=== PATIENT | female | born 1945 | race Caucasian/White ===

== ENCOUNTER 2018-08-20 02:50 | Outpatient (CLI) | payer MEDICARE ==
[2018-08-20 13:25] LABS: #Basophils 0.1 thou/uL (0.0-0.2); #Eosinphils 0.1 thou/uL (0.0-0.7); #Lymphocytes 2.3 thou/uL (1.20-3.40); #Monocytes 0.5 thou/uL (0.11-0.59); #Neutrophils 2.7 thou/uL (1.40-6.50); %Basophils 1.3 % (0.0-1.0); %Eosinophils 1.1 % (0.0-10.0); %Lymphocytes 40.9 % (21.0-51.0); %Monocytes 9.5 % (0.0-10.0); %Neutrophils 47.2 % (42.0-75.0); Hemoglobin 13.8 g/dL (12.0-16.0); Mean Corpuscular HGB CONC 32.1 g/dL (32.0-36.0); Mean Corpuscular Hemoglobin 31.5 pg (27.0-31.0); Mean Corpuscular Volume 98.2 fL (78.0-98.0); Mean Platelet Volume 7.8 fL (7.4-10.4); Platelet Count 286 thou/uL (130-400); RBC Distribution Width 12.2 % (11.5-14.5); Red Blood Cell (RBC) Count 4.37 mill/uL (4.20-5.40); White Blood Cell (WBC) Count 5.6 thou/uL (4.8-10.8)
[2018-08-20 13:30] LABS: Prothrombin Time 12.7 SEC (12.0-14.7)
[2018-08-20 13:51] LABS: Anion Gap 11 mmol/L (10-20); BUN (Urea Nitrogen) 15 mg/dL (9.8-20.1); Calc. Creatinine Clearance 0 mL/min (70-130); Carbon Dioxide 28 mmol/L (23-31); Chloride 103 mmol/L (98-107); Estimated GFR-MDRD Greater than 90; Glucose 89 mg/dL (83-110); Potassium 4.2 mmol/L (3.5-5.1); Sodium 138 mmol/L (136-145)
[2018-08-20 13:57] LABS: Bilirubin Negative (Negative); Blood, Urine Negative (Negative); Clarity CLEAR (Clear); Glucose, Urine (Dipstick) Negative (Negative); Leukocyte Negative (Negative); Nitrite Negative (Negative); Protein, Urine (Dipstick) Negative (Neg-Trace); Specific Gravity, Urine 1.014 (1.002-1.036); Urobilinogen 0.2 mg/dL (0.2-1.0)
[2018-08-20 14:03] LABS: Bacteria/HPF None Seen HPF (None Seen); Hyaline Casts/LPF 0-3 HYALINE CAST LPF (0-3 Hyaline); Pathc Cast-AUWi Flag 0.54 (0-2.49); RBC/HPF 0-3 HPF (0-3); Squamous Epithelial 0-3 HPF (0-3); WBC/HPF None Seen HPF (0-3)
== END 2018-08-20 02:51 | disposition home or self-care (01) ==
LOC: LABBT 02:50
PROVIDERS: ATTEND Orthopaedic Surgery
DX: Z01.818 Encounter for other preprocedural examination (principal); M17.12 Unilateral primary osteoarthritis, left knee
CPT/HCPCS: 80048; 81001; 85025; 85610; 87081; 93005; 93010

== ENCOUNTER 2018-09-01 05:37 | Inpatient (IN) | payer MEDICARE ==
[2018-08-20 12:20] VITALS: BMI 25.8
[2018-09-01] MEDS ORDERED: Tranexamic Acid 1,000 MG/10 ML VIAL ONE (06:25)
[2018-09-01] MEDS ORDERED: Sodium Chloride 0.9% 100 ML ONE (06:25)
[2018-09-01] MEDS ORDERED: Midazolam HCl 2 mg/2 ml Vial ONE (06:32)
[2018-09-01] MEDS ORDERED: Fentanyl 100 MCG/2 ML VIAL ONE (06:32)
[2018-09-01] MEDS ORDERED: Zolpidem Tartrate 5 MG TAB PO PRN ×2 (07:06→07:12)
[2018-09-01] MEDS ORDERED: HYDROcodone/Acetaminophen 10/325 mg Tablet PO PRN ×2 (07:06)
[2018-09-01] MEDS ORDERED: Acetaminophen 325 MG TAB PO PRN (07:06)
[2018-09-01] MEDS ORDERED: diphenhydrAMINE 25 MG CAP PO PRN (07:06)
[2018-09-01] MEDS ORDERED: Promethazine HCl 25 MG/ML VIAL IM PRN ×2 (07:06→07:12)
[2018-09-01] MEDS ORDERED: Ondansetron PF 4 MG/2 ML Vial IVP PRN ×2 (07:06→07:12)
[2018-09-01] MEDS ORDERED: HYDROcodone/Acetaminophen 5/325 mg Tablet PO PRN (07:12)
[2018-09-01] MEDS ORDERED: traMADol HCl 50 MG TAB PO PRN ×2 (07:12)
[2018-09-01] MEDS ORDERED: Ropivacaine HCl/PF 250 ML in Premix Bag 1 BAG NERVE BLCK SCH (07:12)
[2018-09-01] MEDS ORDERED: Fentanyl 100 MCG/2 ML VIAL IV PRN (07:13)
[2018-09-01] MEDS ORDERED: Promethazine HCl 25 MG/ML VIAL ONE (08:44)
[2018-09-01] MEDS ORDERED: ARTHROZENE PO SCH (09:00)
[2018-09-01] MEDS: Sodium Chloride 0.9% 1,000 ML IV SCH ×2 (09:51→17:13)
[2018-09-01] MEDS: Aspirin 81 mg Enteric Coated Tablet PO SCH ×2 (09:51→20:29)
--- NOTE | 2018-09-01 09:51 | RAD ---
LEFT KNEE 2 VIEWS: Date: 09/01/18 HISTORY: Total knee arthroplasty, postop exam. FINDINGS/IMPRESSION: There are recent postop changes of total knee arthroplasty in good position and alignment. Soft tissu e air is present. POS: TPC
[2018-09-01] MEDS ORDERED: Ropivacaine 0.2% HCl/PF (40 MG/20 ML VIAL) ONE (13:28)
[2018-09-01] MEDS ORDERED: Ropivacaine 0.5% HCl/PF (150 MG/30 ML VIAL) ONE (13:28)
[2018-09-01] MEDS ORDERED: Ondansetron PF 4 MG/2 ML Vial ONE (13:53)
[2018-09-01] MEDS ORDERED: Lidocaine 1% PF 5 ML VIAL ONE (13:53)
[2018-09-01] MEDS ORDERED: PROPOFOL 200 MG/20 ML VIAL ONE (13:53)
--- NOTE | 2018-09-01 14:41 | OP ---
DATE OF PROCEDURE: 09/01/2018 PREOPERATIVE DIAGNOSIS: Degenerative joint disease, left knee. POSTOPERATIVE DIAGNOSIS: Degenerative joint disease, left knee. FEEDER CATCHER: Corine Jolley PA-C ESTIMATED BLOOD LOSS: Minimal. SPECIMENS: None. DRAINS: None. COMPLICATIONS: None. TOURNIQUET TIME: 49 minutes. IMPLANTS USED: Susie triathlon 5 femur, 4 tibia, 11 mm CS X3 polyethylene, A32 patella. PROCEDURE IN DETAIL: After informed consent was obtained in the preoperative holding area, the patient was taken to the operative suite where general anesthesia was induced. Once adequate level of general anesthesia was obtained, the patient was positioned and a well-padded tourniquet was placed around the left proximal thigh. The left lower extremity was then prepped and draped in the usual sterile fashion. Prior to exsanguination, a time-out was called and all members of the surgical team agreed upon site, surgeon, and patient. The extremity was then exsanguinated and the tourniquet was raised. A midline longitudinal incision was then made directly over the patella extending 2 fingerbreadths above the superior pole of the patella and 2 fingerbreadths inferior to the inferior patellar pole of the patella. Deeper subcutaneous layers were dissected sharply and local bleeding was controlled with Bovie electrocautery. A quad tendon longitudinal split was then made sharply and a median parapatellar arthrotomy was carried out both sharp and with Bovie electrocautery, carried down to 1 fingerbreadth medial to the tibial tubercle. The knee was then placed into flexion and the patella was everted nicely, and a copious fat pad ectomy was performed allowing for greater exposure of the tibia. The computer-assisted distal femoral fiducial was then placed and pinned firmly, and the distal femoral cutting guide was pinned firmly into place. The oscillating saw was then used to remove the appropriate amount of bone. The 4-in-1 cutting block was then placed on the distal femur and the oscillating saw was used to remove the appropriate amount of bone off the anterior, posterior, and chamfer cuts. After completion of bone cuts, the anterior cruciate ligament was resected sharply and the posterior cruciate ligament retractor was placed and the tibia was subluxed for better exposure. Partial meniscectomies were carried out, and the tibial computer-assisted fiducial was pinned, and the cutting guide was placed. Oscillating saw was then used to remove the bone, with Hohmann retractors used to take care and protect the collateral ligaments. After the tibial resection was performed, a laminar advanced practice psychiatric nurse was placed in between the freshened bone cuts. The knee placed at 90 degrees and further bilateral meniscectomies were carried out, and the curved osteotome and curettage were used to remove any excess bone spurs in the posterior compartment. The trial femoral component, tibial baseplate were placed with the appropriate polyethylene trial insert with an appropriate polyethylene spacer and patellar button. The knee was taken through full range of motion with flexion and extension from 0 to 90 degrees and patellar broach squarely in the trochlea without any squinting or subluxation noted. The knee was also stable to varus and valgus stressing at 0, 15, 45, and 90 degrees of flexion. The drawer was negative. All trial components were then removed and the keel punch was used to provide the appropriate defect in the tibia with a mallet. The freshened bone cuts were copiously irrigated with pulsatile lavage of about 1.5 L to remove all excess debris. The freshened bone cuts were then dried with suction and lap sponge. The knee was placed in flexion and retractors were placed to provide access to all bone cuts. Tobramycin-impregnated methyl methacrylate cement was then placed on the freshened bone cuts and implants which were malleted firmly into place. Curettage and [place] elevators were used to remove any excess bone cement. The knee was placed into full extension and the patellar button was placed under compression, and the cement was allowed to cure. Once completed, the components were again taken through full range of motion and copious irrigation of the knee was carried out with another liter of normal saline. All components were inspected fully with full range of motion and varus and valgus stressing. There was no laxity noted and full extension was observed clinically. Primary closure was accomplished with #2 interrupted Vicryl stitch of the arthrotomy defect. This was oversewn with a #2 running Quill barbed stitch. The gravitational platelet system was then injected into the arthrotomy prior to closure. The subcutaneous layer was then closed with a running 0 barbed Monocryl stitch and skin closure accomplished with a running subcuticular 3-0 Monocryl barbed Quill stitch and augmented with cement on the skin. Tourniquet was lowered. Good spontaneous return of distal pulses was noted clinically and a sterile dressing was applied to the incision. The procedure was terminated without any complications. The patient was awakened in the operative suite and the patient was taken to the recovery room in stable condition. Job ID: [id number]
[2018-09-01] MEDS: CEFAZOLIN 2 GM in Premix Bag 1 BAG IVPB SCH ×2 (14:50→23:49)
[2018-09-01] MEDS: Ketorolac Tromethamine 30 MG/ML VIAL IVP PRN (14:53)
[2018-09-02] MEDS: HYDROcodone/Acetaminophen 5/325 mg Tablet PO PRN ×2 (01:40→06:22)
[2018-09-02] MEDS: Sodium Chloride 0.9% 1,000 ML IV SCH ×3 (03:12→23:21)
[2018-09-02 06:18] LABS: Hemoglobin 11.4 g/dL (12.0-16.0); Mean Corpuscular HGB CONC 32.8 g/dL (32.0-36.0); Mean Corpuscular Hemoglobin 32.1 pg (27.0-31.0); Mean Corpuscular Volume 97.7 fL (78.0-98.0); Platelet Count 234 thou/uL (130-400); RBC Distribution Width 12.1 % (11.5-14.5); Red Blood Cell (RBC) Count 3.57 mill/uL (4.20-5.40); White Blood Cell (WBC) Count 9.6 thou/uL (4.8-10.8)
[2018-09-02] MEDS: Senokot S 8.6-50 MG TAB PO SCH ×2 (08:40→20:57)
[2018-09-02] MEDS: Aspirin 81 mg Enteric Coated Tablet PO SCH ×2 (08:40→20:57)
[2018-09-02] MEDS: Multivitamin W/ Minerals 1 TAB PO SCH (08:40)
[2018-09-02] MEDS: Ferrous Gluconate 324 MG TAB PO SCH ×2 (08:40→17:50)
[2018-09-02] MEDS: Ketorolac Tromethamine 30 MG/ML VIAL IVP PRN (08:42)
--- NOTE | 2018-09-02 12:26 | PRG ---
DATE OF SERVICE: 09/02/2018 SUBJECTIVE: Pari is a 73-year-old white female, who is postop day 1 from left total knee arthroplasty. She did relatively well. She was able to stand and ambulate yesterday evening. OBJECTIVE: VITAL SIGNS: Temperature 97, pulse 81, respiratory rate 18 and nonlabored, O2 saturation is 93% to 94% on room air and blood pressure is 125/71. GENERAL: She is alert and oriented to person, place, time, situation, grossly nonfocal. Responsive and appropriate with examiner. EXTREMITIES: Visual inspection of the left lower extremity demonstrates her incision to be clean and dry without erythema or strike through. She is neurovascularly intact in left lower extremity. IMPRESSION: A 73-year-old white female, postoperative day 1, left total knee arthroplasty. PLAN: Continue current care. Probable discharge tomorrow. Job ID: [id number]
[2018-09-03 04:44] LABS: Mean Corpuscular Hemoglobin 32.4 pg (27.0-31.0); Mean Platelet Volume 8.2 fL (7.4-10.4); Platelet Count 222 thou/uL (130-400); RBC Distribution Width 12.1 % (11.5-14.5); Red Blood Cell (RBC) Count 3.39 mill/uL (4.20-5.40); White Blood Cell (WBC) Count 9.8 thou/uL (4.8-10.8)
[2018-09-03] MEDS: HYDROcodone/Acetaminophen 5/325 mg Tablet PO PRN ×2 (05:00→09:03)
[2018-09-03] MEDS: Multivitamin W/ Minerals 1 TAB PO SCH (08:18)
[2018-09-03] MEDS: Senokot S 8.6-50 MG TAB PO SCH (08:18)
[2018-09-03] MEDS: Ferrous Gluconate 324 MG TAB PO SCH (08:18)
[2018-09-03] MEDS: Aspirin 81 mg Enteric Coated Tablet PO SCH (08:19)
[2018-09-03] MEDS: Sodium Chloride 0.9% 1,000 ML IV SCH (08:19)
[2018-09-03 09:55] VITALS: BP 102/64; TEMP 97.9
== END 2018-09-03 12:08 | disposition home or self-care (01) | DRG 470 ==
LOC: SDC 05:37 → SJJU 09:43
PROVIDERS: ADMIT Orthopaedic Surgery; ATTEND Orthopaedic Surgery
PROC: 0SRD0J9 Replacement of Left Knee Joint with Synthetic Substitute, Cemented, Open Approach (ICD-10-PCS; principal; 2018-09-01)
DX: M17.12 Unilateral primary osteoarthritis, left knee (principal); Z88.2 Allergy status to sulfonamides; Z88.7 Allergy status to serum and vaccine; Z90.710 Acquired absence of both cervix and uterus
CPT/HCPCS: 36415; 85027; 86850; 86900; 86901; C1713; C1776; J0690; J1885; J2001; J2250; J2405; J2550; J2704; J2795; J3010; J3370; J3490

== ENCOUNTER 2020-08-24 13:30 | Inpatient (IN) | payer MEDICARE ==
[2020-10-23 09:37] VITALS: BMI 26.6
[2020-10-24] MEDS ORDERED: Sodium Chloride 0.9% 100 ML ONE (07:42)
[2020-10-24] MEDS ORDERED: Vancomycin 1 GM/200 ML BAG ONE (07:42)
[2020-10-24] MEDS ORDERED: Tranexamic Acid 1,000 MG/10 ML VIAL ONE (07:42)
[2020-10-24] MEDS ORDERED: Fentanyl 100 MCG/2 ML VIAL ONE ×2 (08:05→11:10)
[2020-10-24] MEDS ORDERED: Midazolam HCl 2 mg/2 ml Vial ONE (08:05)
[2020-10-24] MEDS ORDERED: Promethazine HCl 25 MG/ML VIAL IM PRN ×2 (08:55→09:30)
[2020-10-24] MEDS ORDERED: Acetaminophen 325 MG TAB PO PRN (08:55)
[2020-10-24] MEDS ORDERED: traMADol HCl 50 MG TAB PO PRN ×2 (08:55→09:30)
[2020-10-24] MEDS ORDERED: Zolpidem Tartrate 5 MG TAB PO PRN ×2 (08:55→09:30)
[2020-10-24] MEDS ORDERED: Ondansetron PF 4 MG/2 ML Vial IVP PRN (08:55)
[2020-10-24] MEDS ORDERED: diphenhydrAMINE 25 MG CAP PO PRN (08:55)
[2020-10-24] MEDS ORDERED: Fentanyl 100 MCG/2 ML VIAL SLOW IVP PRN ×3 (08:55→09:29)
[2020-10-24] MEDS ORDERED: Clindamycin/D5W 900 MG in Premix Bag 1 BAG IVPB SCH (09:00)
[2020-10-24] MEDS ORDERED: Cholecalciferol 1,000 UNITS (25 MCG) TAB PO SCH (09:00)
[2020-10-24] MEDS ORDERED: Non-Formulary Item 1 EACH (Cyanocobalamin (Vitamin B-12) [Vitamin B-12] 500 MCG Tablet) PO SCH (09:00)
[2020-10-24] MEDS ORDERED: Non-Formulary Item 1 EACH (Omega-3 Fatty Acids/Fish Oil [Fish Oil 1,000 Mg Capsule] 1 CAP PO SCH (09:00)
[2020-10-24] MEDS ORDERED: Bupivacaine HCl 0.5%/Epinephrine 1:200,000/PF 30 ml Vial ONE (09:09)
[2020-10-24] MEDS ORDERED: Ketorolac Tromethamine 30 MG/ML VIAL ONE (09:09)
[2020-10-24] MEDS ORDERED: Ondansetron PF 4 MG/2 ML Vial ONE (09:09)
[2020-10-24] MEDS ORDERED: Lidocaine 1% PF 5 ML VIAL ONE (09:09)
[2020-10-24] MEDS ORDERED: PROPOFOL 200 MG/20 ML VIAL ONE (09:09)
[2020-10-24] MEDS ORDERED: Ropivacaine 2% HCl/PF (20 MG/10 ML VIAL) ONE (09:09)
[2020-10-24] MEDS ORDERED: Dexamethasone 20 MG/5 ML VIAL ONE (09:09)
[2020-10-24] MEDS ORDERED: Ropivacaine 0.2% 550 ML 550 ML NERVE BLCK SCH (09:30)
[2020-10-24] MEDS ORDERED: Promethazine HCl 25 MG/ML VIAL ONE (11:11)
[2020-10-24] MEDS: Ferrous Gluconate 324 MG TAB PO SCH ×2 (11:43→20:30)
[2020-10-24] MEDS: Senokot S 8.6-50 MG TAB PO SCH ×2 (11:43→20:30)
[2020-10-24] MEDS: Multivitamin W/ Minerals 1 TAB PO SCH (11:43)
[2020-10-24] MEDS: Vit A,C & E/Lutein/Minerals Tablet PO SCH (11:44)
[2020-10-24] MEDS: Aspirin 81 mg Enteric Coated Tablet PO SCH ×2 (11:44→20:30)
[2020-10-24] MEDS: Ketorolac Tromethamine 30 MG/ML VIAL IVP SCH ×2 (12:17→17:20)
[2020-10-24] MEDS: Clindamycin/D5W 900 MG in Premix Bag 1 BAG IVPB SCH ×2 (12:39→17:20)
[2020-10-24] MEDS: Sodium Chloride 0.9% 1,000 ML IV SCH ×2 (12:40→20:33)
[2020-10-24] MEDS ORDERED: Ketorolac Tromethamine 30 MG/ML VIAL IVP SCH (14:00)
[2020-10-24] MEDS: traMADol HCl 50 MG TAB PO PRN (16:42)
[2020-10-24] MEDS: Cholecalciferol 1,000 UNITS (25 MCG) TAB PO SCH (20:30)
[2020-10-25] MEDS: traMADol HCl 50 MG TAB PO PRN ×3 (01:58→13:43)
[2020-10-25] MEDS: Ketorolac Tromethamine 30 MG/ML VIAL IVP SCH ×4 (02:27→18:37)
[2020-10-25 06:10] LABS: Hemoglobin 11.7 g/dL (12.0-16.0); Mean Corpuscular HGB CONC 32.5 g/dL (32.0-36.0); Mean Corpuscular Hemoglobin 32.3 pg (27.0-31.0); Mean Corpuscular Volume 99.3 fL (78.0-98.0); Mean Platelet Volume 7.7 fL (7.4-10.4); Platelet Count 250 thou/uL (130-400); RBC Distribution Width 11.9 % (11.5-14.5); Red Blood Cell (RBC) Count 3.64 mill/uL (4.20-5.40); White Blood Cell (WBC) Count 12.8 thou/uL (4.8-10.8)
[2020-10-25] MEDS: Sodium Chloride 0.9% 1,000 ML IV SCH ×2 (06:54→18:24)
[2020-10-25] MEDS: Fish Oil 1,000 MG CAP PO SCH (08:55)
[2020-10-25] MEDS: Senokot S 8.6-50 MG TAB PO SCH ×2 (08:55→20:59)
[2020-10-25] MEDS: Multivitamin W/ Minerals 1 TAB PO SCH (08:56)
[2020-10-25] MEDS: Aspirin 81 mg Enteric Coated Tablet PO SCH ×2 (08:56→20:59)
[2020-10-25] MEDS: Cyanocobalamin (Vitamin B-12) 1,000 MCG TAB PO SCH (08:56)
[2020-10-25] MEDS: Cholecalciferol 1,000 UNITS (25 MCG) TAB PO SCH ×2 (08:56→21:00)
[2020-10-25] MEDS: Ferrous Gluconate 324 MG TAB PO SCH ×2 (08:56→21:00)
[2020-10-25] MEDS ORDERED: Calcium-Magnesium-Zinc Tablet PO SCH (09:00)
[2020-10-25] MEDS: Ondansetron PF 4 MG/2 ML Vial IVP PRN (12:53)
[2020-10-25] MEDS: Vit A,C & E/Lutein/Minerals Tablet PO SCH (12:56)
[2020-10-26] MEDS: Ketorolac Tromethamine 30 MG/ML VIAL IVP SCH ×2 (00:05→07:13)
[2020-10-26] MEDS: Sodium Chloride 0.9% 1,000 ML IV SCH ×2 (01:10→10:53)
[2020-10-26] MEDS: traMADol HCl 50 MG TAB PO PRN (07:12)
[2020-10-26] MEDS: Ondansetron PF 4 MG/2 ML Vial IVP PRN (07:14)
[2020-10-26 07:48] VITALS: BP 105/63; TEMP 97.9
[2020-10-26] MEDS: Aspirin 81 mg Enteric Coated Tablet PO SCH (07:59)
[2020-10-26] MEDS: Cholecalciferol 1,000 UNITS (25 MCG) TAB PO SCH (07:59)
[2020-10-26] MEDS: Cyanocobalamin (Vitamin B-12) 1,000 MCG TAB PO SCH (08:00)
[2020-10-26] MEDS: Ferrous Gluconate 324 MG TAB PO SCH (08:01)
[2020-10-26] MEDS: Fish Oil 1,000 MG CAP PO SCH (08:02)
[2020-10-26] MEDS: Senokot S 8.6-50 MG TAB PO SCH (08:03)
[2020-10-26] MEDS: Multivitamin W/ Minerals 1 TAB PO SCH (08:03)
[2020-10-26] MEDS: Vit A,C & E/Lutein/Minerals Tablet PO SCH (08:04)
== END 2020-10-26 11:20 | disposition home or self-care (01) | DRG 470 ==
LOC: SURG A 10-24 06:23
PROVIDERS: ADMIT Orthopaedic Surgery; ATTEND Orthopaedic Surgery
PROC: 0SRC0J9 Replacement of Right Knee Joint with Synthetic Substitute, Cemented, Open Approach (ICD-10-PCS; principal; 2020-10-24)
PROC: 8E0YXBZ Computer Assisted Procedure of Lower Extremity (ICD-10-PCS; 2020-10-24)
DX: M17.31 Unilateral post-traumatic osteoarthritis, right knee (principal); Z20.822 Contact with and (suspected) exposure to COVID-19; Z96.652 Presence of left artificial knee joint; Z90.710 Acquired absence of both cervix and uterus; Z79.899 Other long term (current) drug therapy; Z88.5 Allergy status to narcotic agent; Z88.2 Allergy status to sulfonamides; Z88.7 Allergy status to serum and vaccine
CPT/HCPCS: 36415; 85027; A4306; C1713; C1776; J0690; J1100; J1885; J2250; J2405; J2550; J2704; J2795; J3010; J3370; J3490

== ENCOUNTER 2020-10-19 13:03 | Outpatient (CLI) | payer MEDICARE ==
[2020-10-19 14:49] LABS: Bilirubin Neg (Negative); Blood, Urine Negative (Negative); Clarity Clear (Clear); Glucose, Urine (Dipstick) Normal (Negative); Ketone, Urine Negative (Negative); Leukocyte 25 (Negative); Nitrite Negative (Negative); Protein, Urine (Dipstick) Negative (Neg-Trace); Urobilinogen Normal mg/dL (Less than 2)
[2020-10-19 15:16] LABS: Anion Gap 13 mmol/L (10-20); BUN (Urea Nitrogen) 15 mg/dL (9.8-20.1); Calc. Creatinine Clearance 0 mL/min (70-130); Carbon Dioxide 26 mmol/L (23-31); Chloride 106 mmol/L (98-107); Glucose 105 mg/dL (83-110); Potassium 4.1 mmol/L (3.5-5.1); Sodium 141 mmol/L (136-145)
[2020-10-19 15:18] LABS: #Basophils 0.1 10x3/uL (0.0-0.2); #Eosinphils 0.1 10x3/uL (0.0-0.5); #Monocytes 0.6 10x3/uL (0.0-1.1); #Neutrophils 3.3 10x3/uL (1.5-8.4); %Basophils 0.9 % (0.0-2.0); %Eosinophils 1.5 % (0.0-6.0); %Lymphocytes 39.3 % (18.0-47.0); %Monocytes 8.7 % (0.0-10.0); %Neutrophils 49.5 % (40.0-75.0); Hemoglobin 12.9 g/dL (12.0-15.5); Mean Corpuscular HGB CONC 32.9 g/dL (32.0-36.0); Mean Corpuscular Hemoglobin 31.7 pg (27.0-33.0); Mean Corpuscular Volume 96.3 fl (81.6-98.3); Mean Platelet Volume 10.7 fl (7.4-10.4); Platelet Count 281 10x3/uL (150-450); Red Blood Cell (RBC) Count 4.07 10x6/uL (3.90-5.03); White Blood Cell (WBC) Count 6.7 10x3/uL (3.5-10.5)
[2020-10-19 15:21] LABS: Calcium 9.7 mg/dL (7.8-10.44)
[2020-10-19 15:30] LABS: INR-International Normal Ratio 0.9; Prothrombin Time 10.3 sec (9.5-12.1)
[2020-10-19 15:44] LABS: RBC/HPF 0-3 HPF (0-3)
[2020-10-19 15:47] LABS: WBC/HPF 0-3 HPF (0-3)
[2020-10-19 15:49] LABS: Bacteria/HPF 1+ HPF (None Seen); Calcium Oxalate Crystals Rare HPF (None Seen)
[2020-10-20 11:14] LABS: SARS-CoV-2 PCR by NAA Not Detected (NotDetected)
== END 2020-10-19 13:04 | disposition home or self-care (01) ==
LOC: LABBT 13:03
PROVIDERS: ATTEND Orthopaedic Surgery
DX: Z01.818 Encounter for other preprocedural examination (principal); Z96.651 Presence of right artificial knee joint; Z20.822 Contact with and (suspected) exposure to COVID-19
CPT/HCPCS: 80048; 81001; 85025; 85610; 87081; U0003; U0005; 93005; 93010